=== PATIENT | female | born 1950 | race Caucasian/White ===

== ENCOUNTER 2017-07-13 16:16 | Emergency (ER) | payer MEDICARE, OTHER ==
[~2017-07-13] VITALS: Ht 167.6 cm; Wt 60.0 kg
[2017-07-13 16:20] VITALS: BP 163/77; PULSE 90; RESP 14; TEMP 98.8; O2SAT 97
--- NOTE | 2017-07-13 18:38 | PD ---
HPI Chief Complaint: Head Injury Time Seen by Provider: 17:45 Travel History International Travel<30 days: No Contact w/Intl Traveler<30days: No Traveled to known affect area: No History of Present Illness HPI 66-year-old otherwise healthy female presents to the emergency room for evaluation of head injury occurred just prior to arrival. Patient was on about a 6 inch step when she lost her footing and fell backwards. She struck her buttocks on the ground and the back of her head on the nearby ladder. She denies loss of consciousness. Denies visual changes, dizziness, nausea, vomiting, or significant headache. She is not on blood thinners. She denies any neck pain or any other injuries. She has been ambulatory. States her last tetanus was in 2008. She is not on any medications. Denies any chronic medical conditions. PFSH Past Medical History Arthritis: Yes Diminished Hearing: No Immunizations Current: Yes Tetanus Vaccination: > 5 Years Influenza Vaccination: No ?: Not Menopausal: Yes Past Surgical History Appendectomy: Yes Tonsillectomy: Yes Social History Alcohol Use: Yes (WINE EVERYDAY ) Tobacco Use: No Substance Use: No Allergies-Medications (Allergen,Severity, Reaction): Coded Allergies: Penicillins (Verified Allergy, Unknown, RASHES , 07/13/17) codeine (Verified Allergy, Unknown, RASHES , 07/13/17) Reported Meds & Prescriptions Reported Meds & Active Scripts Active No Active Prescriptions or Reported Medications Review of Systems Except as stated in HPI: all other systems reviewed are Neg Physical Exam Narrative GENERAL: Well-nourished, well-developed female in no acute distress. Afebrile. Ambulatory. SKIN: Focused skin assessment warm/dry. There is a 0.5 laceration to the posterior scalp. HEAD: Normocephalic. EYES: No scleral icterus. No injection or drainage. ENT: Mucosa pink and moist. No erythema or exudates. No uvular edema. No uvular , palatal, or tonsillar deviation. Airway patent. Nasal turbinates appear normal without nasal blood, purulent drainage or septal hematoma. EARS: Bilateral pinnae and external canals appear within normal limits. Bilateral tympanic membranes without erythema, dullness or perforation. No hemotympanum. NECK: Supple, trachea midline. No JVD or lymphadenopathy. CARDIOVASCULAR: Regular rate and rhythm without murmurs, gallops, or rubs. RESPIRATORY: Breath sounds equal bilaterally. No accessory muscle use. NEUROLOGICAL: Awake and alert. Cranial nerves II through XII intact. Motor and sensory grossly within normal limits. Five out of 5 muscle strength in all muscle groups. Normal speech. No pronator drift in upper or lower extremities. Data Data Last Documented VS Vital Signs Date Time Temp Pulse Resp B/P (MAP) Pulse Ox O2 Delivery O2 Flow Rate FiO2 07/13/17 19:31 87 18 174/84 (114) 97 Room Air 07/13/17 16:[address] Brain W/O Iv Contrast(Rout) (07/13/17 ) Ed Discharge Order (07/13/17 19:38) [facility] Medical Decision Making Medical Screen Exam Complete: Yes Emergency Medical Condition: Yes Medical Record Reviewed: Yes Differential Diagnosis Laceration, contusion, concussion, fracture, post head injury, intracranial hemorrhage Narrative Course 66-year-old female presents to the emergency room for evaluation of head injury that occurred just prior to arrival. Patient slipped on a 6 inch step and fell backwards striking her but on the ground before hitting the back of her head on a ladder. She denies loss of consciousness, significant headache, nausea, vomiting, photophobia, vision changes, or dizziness. Any other complaints. Not on blood thinners. CT is negative. Laceration was thoroughly cleansed. There is a 0.5 similar well approximated, nonbleeding, superficial laceration to the left posterior scalp. Patient was told that one staple could be placed to prevent further bleeding but that she will likely be fine without any repair. She opted to forego repair. Patient also declined tetanus shot. Told to return for worsening symptoms. She understands and agrees to plan. Diagnosis Primary Impression: Scalp laceration Qualified Codes: S01.01XA - Laceration without foreign body of scalp, initial encounter Referrals: Primary Care Physician Additional Instructions: Keep wound clean and dry. Apply triple antibiotic ointment daily. You may wash your hair normally. Delta out in 7 days. Return for worsening symptoms. Scripts No Active Prescriptions or Reported Meds Disposition: 01 DISCHARGE HOME Condition: Stable Gia Gifford Jul 13, 2017 18:38
--- NOTE | 2017-07-13 19:16 | RADRPT ---
EXAM DATE/TIME: 07/13/2017 18:14 [facility] COMPARISON: No previous studies available for comparison. INDICATIONS : from from a cali hitting the back of her head. laceration. RADIATION DOSE: 30.34 CTDIvol (mGy) MEDICAL HISTORY : None SURGICAL HISTORY : None. ENCOUNTER: Initial ACUITY: 1 day PAIN SCALE: 4/10 LOCATION: posterior head TECHNIQUE: Multiple contiguous axial images were obtained of the head. Using automated exposure control and adj ustment of the mA and/or kV according to patient size, radiation dose was kept as low as reasonably a chievable to obtain optimal diagnostic quality images. DICOM format image data is available electro nically for review and comparison. FINDINGS: CEREBRUM: The ventricles are normal for age. No evidence of midline shift, mass lesion, hemorrhage or acute in farction. No extra-axial fluid collections are seen. POSTERIOR FOSSA: The cerebellum and brainstem are intact. The 4th ventricle is midline. The cerebellopontine angle i s unremarkable. EXTRACRANIAL: The visualized portion of the orbits is intact. There is a superior left parietal scalp injury. SKULL: The calvaria is intact. No evidence of skull fracture. CONCLUSION: 1. No intracranial abnormality seen. 2. Posterior superior left parietal scalp injury. Jones Huerta MD on July 13, 2017 at 19:13 Board Certified Radiologist. This report was verified electronically.
[2017-07-13 19:31] VITALS: BP 174/84; PULSE 87; RESP 18; O2SAT 97
== END 2017-07-13 19:43 | disposition home or self-care (01) ==
LOC: NEPD 16:16
DX: S01.01XA Laceration without foreign body of scalp, initial encounter (principal); W01.198A Fall on same level from slipping, tripping and stumbling with subsequent striking against other object, initial encounter
CPT/HCPCS: 70450; 99284